=== PATIENT | male | born 1990 | race Two or more races ===

== ENCOUNTER → 2020-03-30 | Outpatient (CLI) | payer BC ==
[2020-03-31 06:06] LABS: RPR Non Reactive (Non Reactive)
[2020-04-02 16:02] LABS: Hepatitis A Ab IgM Negative; Hepatitis B Core IgM Negative; Hepatitis B Surface Antigen Negative (Negative)
[2020-04-02 17:05] LABS: Hepatitis C Antibody Positive (Negative)
== END | disposition home or self-care (01) ==
LOC: LAB 13:08
PROVIDERS: ATTEND Nurse Practitioner Family
DX: R30.0 Dysuria (principal); Z11.3 Encounter for screening for infections with a predominantly sexual mode of transmission; Z72.51 High risk heterosexual behavior
CPT/HCPCS: 36415; 80074; 86592; 86703